=== PATIENT | male | born 1950 | race Caucasian/White ===

== ENCOUNTER 2018-11-28 07:27 | Inpatient (IN) ==
[2018-11-22 16:17] LABS: Appearance,Urine CLEAR; Bilirubin,Urine NEG (NEG); Color,Urine YELLOW; Glucose,Urine (UA) NEGATIVE (NEG); Leukocyte Esterase,Urine NEG /uL (NEG); Protein,Urine NEG (NEG); Specific Gravity,Urine 1.012 (1.000-1.035); Urine Blood NEG mg/dL (<0.03); Urobilinogen,Urine NEG (NEG)
[2018-11-22 17:38] LABS: Basophils # (Auto) 0 K/mcL (0.0-0.3); Basophils % (Auto) 0.6 % (0.0-2.0); Eosinophils # (Auto) 0.1 K/mcL (0.0-0.7); Eosinophils % (Auto) 1.3 % (0.0-7.0); Granulocytes % (Auto) 54.3 % (38.0-78.0); Lymphocytes # (Auto) 1.6 K/mcL (1.5-4.8); Lymphocytes % (Auto) 30.3 % (15.5-49.0); Mean Corpuscular HGB Conc 32.7 g/dL (31.0-36.0); Monocytes # (Auto) 0.7 K/mcL (0.1-0.9); Monocytes % (Auto) 13.5 % (1.0-12.0); Platelet Count 238 K/mcL (140-440); RBC 5.37 M/mcL (4.50-5.90); Red Cell Distribution Width 13.4 % (11.5-14.5)
[2018-11-22 17:47] LABS: Blood Urea Nitrogen 16 mg/dl (8-23)
[~2018-11-28 07:27] MED LIST: ACETAMINOPHEN 500 MG TABLET PO SCH; CELECOXIB 200 MG CAPSULE PO SCH; PREGABALIN 75 MG CAPSULE PO SCH; ceFAZolin 1 GM VIAL IV SCH; oxyCODONE 10 MG TAB.ER.12H PO SCH
[2018-11-28] MEDS ORDERED: ONDANSETRON 4 MG/2 ML VIAL IV ONE (10:20)
[2018-11-28] MEDS ORDERED: LIDOCAINE HCL/PF 100 MG/5 ML SYRINGE IV ONE (10:20)
[2018-11-28] MEDS ORDERED: KETAMINE 100 MG/ML ML IV ONE (10:20)
[2018-11-28] MEDS ORDERED: PROPOFOL 200 MG/20 ML VIAL IV ONE (10:20)
[2018-11-28] MEDS ORDERED: SUCCINYLCHOLINE 20 MG/ML ML IV ONE (10:20)
[2018-11-28] MEDS ORDERED: MIDAZOLAM 5 MG/5 ML VIAL IV ONE (10:20)
[2018-11-28] MEDS ORDERED: TRANEXAMIC ACID 1,000 MG/10 ML VIAL IV ONE ×2 (10:20→11:48)
[2018-11-28] MEDS ORDERED: PHENYLEPHRINE 10 MG/ML VIAL IV ONE (10:20)
[2018-11-28] MEDS ORDERED: fentaNYL 100 MCG/2 ML VIAL IV ONE (10:20)
[2018-11-28] MEDS ORDERED: ROPIVACAINE HCL/PF 30 ML VIAL IJ ONE (10:20)
[2018-11-28] MEDS ORDERED: DEXAMETHASONE 10 MG/ML VIAL IV ONE (10:20)
[2018-11-28] MEDS ORDERED: GLYCOPYRROLATE 0.2 MG/ML VIAL IV ONE (10:20)
[2018-11-28] MEDS ORDERED: METHOCARBAMOL 1,000 MG/10 ML VIAL IV PRN (10:52)
[2018-11-28] MEDS ORDERED: IPRATROPIUM/ALBUTEROL 3 ML AMPUL.NEB NEB PRN (10:52)
[2018-11-28] MEDS ORDERED: FLUMAZENIL 0.1 MG/ML ML IV PRN (10:52)
[2018-11-28] MEDS ORDERED: ONDANSETRON 4 MG/2 ML VIAL IV PRN ×2 (10:52→11:48)
[2018-11-28] MEDS ORDERED: NALOXONE HCL 0.4 MG/ML VIAL IV PRN (10:52)
[2018-11-28] MEDS ORDERED: BENZOCAINE/MENTHOL 1 LOZENGE PO PRN ×2 (10:52→11:48)
[2018-11-28] MEDS ORDERED: MEPERIDINE 25 MG/ML SYRINGE IV PRN (10:52)
[2018-11-28] MEDS ORDERED: fentaNYL 100 MCG/2 ML VIAL IV PRN (10:52)
[2018-11-28] MEDS ORDERED: GENTAMICIN SULFATE 800 MG/20 ML VIAL IR ONE (10:57)
--- NOTE | 2018-11-28 11:47 | Brief Operative Note ---
Date of procedure: 11/28/18 Pre-op diagnosis: left shoulder rca and bicep tear Post-op diagnosis: same Procedure: left shoulder reverse tsa and bicep tenodesis Grafts/Implants: Yes Anesthesia: GETA Complications: none Complications Description: 11/28/18 11:46none 11/28/18 11:46 Surgeon: Dieter Aparicio Chipper Feeder: Erick Blank Estimated blood loss (cc): 50 Specimens Removed/Pathology: none sent Condition: stable Disposition: PACU
[2018-11-28] MEDS ORDERED: ACETAMINOPHEN 325 MG TABLET PO PRN (11:48)
[2018-11-28] MEDS ORDERED: KETOROLAC 30 MG/ML VIAL IV PRN (11:48)
[2018-11-28] MEDS ORDERED: TEMAZEPAM 15 MG CAPSULE PO PRN (11:48)
[2018-11-28] MEDS ORDERED: MAGNESIUM HYDROXIDE 30 ML ORAL.SUSP PO PRN (11:48)
[2018-11-28] MEDS ORDERED: BISACODYL 10 MG SUPP.RECT PR PRN (11:48)
[2018-11-28] MEDS ORDERED: POLYETHYLENE GLYCOL 3350 17 GM PACKET PO PRN (11:48)
[2018-11-28] MEDS ORDERED: HYDROmorphone 2 MG/ML VIAL IV PRN (11:48)
[2018-11-28] MEDS ORDERED: FLEETS ADULT ENEMA PR PRN (11:48)
[2018-11-28] MEDS ORDERED: CURAMIN PO PRN (11:50)
--- NOTE | 2018-11-28 12:40 | Operative Note ---
DATE OF OPERATION: 11/28/2018 PREOPERATIVE DIAGNOSES: Left shoulder rotator cuff arthropathy, degenerative arthritis, and biceps tendinopathy. POSTOPERATIVE DIAGNOSES: Left shoulder rotator cuff arthropathy, degenerative arthritis, and biceps tendinopathy. PROCEDURE: Left reverse total shoulder and biceps tenodesis. SURGEON: Dieter Aparicio M.D. ASSISTANT ACCOUNT MANAGER: Erick Blank PA-C. ANESTHESIA: General LMA anesthesia. COMPLICATIONS: None. DESCRIPTION OF PROCEDURE: The patient was brought to the operating room and put to sleep with general LMA anesthesia. Once asleep, the patient had the left shoulder sterilely prepped and draped in the usual sterile fashion. It was confirmed as the operative site and Ioban placed over the skin. A deltopectoral approach performed, retracting the cephalic vein laterally. Once done, we then exposed the anterior capsule, released the remnants of the subscap and biceps tendon which was then harvested and reattached to the pec major muscle with a [id number] suture. Once done, we then retracted the subscap portion of the rotator cuff medially and dislocated the humeral head. There was proximal humeral migration and significant rotator cuff tear superiorly. At this point, we then removed the bony spurs with an osteotome and then made our cut at the anatomical neck region using the Travel Notes guide at 20 degrees of retroversion. We then subluxed the head posteriorly and identified the glenoid. A 360-degree capsular release and labral removal was performed. We then placed a pin centrally and reamed up to the size 40. A central Metaglene after reaming to depth and achieving punctate bleeding of the sclerotic bone. We then placed the Metaglene with a 6.5 central screw 32 mm in length, a 32 mm 4.5, and two 28 mm 4.5 screws, all locking. We placed a 40 mm concentric humeral head over the Metaglene and 2 mm of offset. Once done, we then broached up on the humerus. The humerus was broached up to size with a 12 stem. A standard poly seemed to fit very nicely, re-achieving his full motion which he had lost. We irrigated thoroughly and cemented into place the distal portion of the stem and porous ingrowth proximally. At this point, we then placed the final implant with a standard thickness poly which was reduced, achieving full motion. We irrigated thoroughly and closed the soft tissues with 2-0 Vicryl. Skin was closed with Stratafix and 2-0 Vicryl and adhesive closure. The patient tolerated this well without complication. A regular Donjoy sling was fitted and given to the patient. Blood loss was about 50 mL. FABIEN:dalton Job ID: [id number] Doc ID: [id number] Dieter Aparicio MD
--- NOTE | 2018-11-28 12:47 | XRay Report ---
HISTORY: Postop total shoulder replacement FINDINGS: There is a well-positioned reverse shoulder prosthesis. No fracture is present and there are no abnormal soft tissue calcifications. There is minor blunting at the left costophrenic sulcus. Minor arthritis is seen at the acromioclavicular joint. IMPRESSION: Well-positioned left shoulder prosthesis Interpreted and Authenticated by: Damian Jang 11/28/18
[2018-11-28] MEDS: 0.45 % SODIUM CHLORIDE 1,000 ML IV SCH ×2 (17:26→22:00)
[2018-11-28] MEDS: 0.9 % SODIUM CHLORIDE 10 ML SYRINGE IV SCH ×2 (17:26→21:56)
[2018-11-28] MEDS: ceFAZolin 1 GM VIAL IV SCH (17:58)
[2018-11-28] MEDS ORDERED: [UNRECOGNIZED DRUG - OTHER] PO SCH (21:00)
[2018-11-28] MEDS ORDERED: PEPR EXT PO SCH (21:00)
[2018-11-28] MEDS ORDERED: TURMERIC EXT PO SCH (21:00)
[2018-11-28] MEDS ORDERED: SENNOSIDES 1 TABLET PO SCH (21:00)
[2018-11-28] MEDS ORDERED: TURMERIC PO SCH (21:00)
[2018-11-28] MEDS ORDERED: ATORVASTATIN 20 MG TABLET PO SCH (21:00)
[2018-11-28] MEDS: HYDROcodone/APAP 10/325MG TABLET PO PRN (21:56)
[2018-11-28] MEDS: DOCUSATE SODIUM 100 MG CAPSULE PO SCH (21:56)
[2018-11-29] MEDS: ceFAZolin 1 GM VIAL IV SCH (03:31)
[2018-11-29] MEDS: 0.9 % SODIUM CHLORIDE 10 ML SYRINGE IV SCH ×2 (03:31→04:30)
[2018-11-29] MEDS: HYDROcodone/APAP 10/325MG TABLET PO PRN ×2 (05:22→12:54)
--- NOTE | 2018-11-29 07:54 | Orthopedic Progress Note ---
Subjective Patient information: Note initiated : 11/29/18 at 7:54 am Service Date, if different from initiated Date: [] Patient: Pavel Michel 68 y/o M admitted on 11/28/18 for Left Reverse Total Shoulder Arthroplasty. Chief Complaint: [Pt is stable this morning on post operative day 1 without any significant concerns or complaints. Patients vital signs have remained stable. Patients dressing is dry and is grossly intact from a neurov ascular and motor standpoint. Patients 10 point ROS is otherwise negative. ] Objective Vital signs: Vital Signs Temp Pulse Resp BP BP Pulse Ox 11/29/18 07:44 98.2 F 64 18 102/68 93 11/29/18 03:40 98.7 F 68 20 93/57 94 11/28/18 23:05 98.9 F 93 H 26 H 104/67 94 11/28/18 19:23 97.8 F 85 26 H 116/75 94 11/28/18 19:20 79 93 11/28/18 15:13 97.8 F 79 16 115/78 93 11/28/18 14:38 92 11/28/18 14:33 74 108/70 92 11/28/18 13:48 82 125/80 92 11/28/18 13:33 78 120/76 94 11/28/18 13:18 82 124/78 92 11/28/18 13:03 96.4 F L 82 16 128/82 94 11/28/18 12:54 97.7 F 85 18 132/76 98 11/28/18 12:46 97.8 F 86 18 135/84 98 11/28/18 12:32 97.6 F 87 18 139/93 92 11/28/18 12:18 97.7 F 95 H 20 137/89 98 11/28/18 12:13 89 12 127/73 96 11/28/18 12:09 93 H 12 85/60 96 11/28/18 12:04 97.3 F 91 H 11 L 94/51 95 Intake and Output 11/28/18 11/29/18 11/29/18 21:59 05:59 13:59 Intake Total 2550 675 Output Total 875 1175 Balance 1675 -500 Intake: Oral 2550 675 Output: Void Amount 875 1175 Other: Meal Dinner Percent of Meal Consumed 75% Urine Appearance Clear Clear Urine Color Straw Straw Urine Odor Strong Normal Weight 207 lb Intake & Output: Intake & Output 11/28/18 11/29/18 11/29/18 21:59 05:59 13:59 Intake Total 2550 675 Output Total 875 1175 Balance 1675 -500 Weight 207 lb Intake: Oral 2550 675 Output: Void Amount 875 1175 Other: Meal Dinner Percent of Meal Consumed 75% Urine Appearance Clear Clear Urine Color Straw Straw Urine Odor Strong Normal Incision: Yes healing Incision clean and dry: Yes Dressing: Yes clean Weight bearing status: full Neurological exam IM: Yes motor sensory intact, Yes neurovascular intact - Labs CBC & BMP: 11/22/18 14:49 11/22/18 14:49 Labs: Orthopedic Labs 11/22/18 14:49 PT 13.5 INR 1.0 APTT 35 11/22/18 14:49 Hgb 15.8 Hct 48.3 Assessment and Plan (1) History of reverse total replacement of left shoulder joint The patient has been educated regarding dressing care, Physical Therapy recommendations, home exercises, restrictions, and follow up appointments. The patient has had all necessary DME prescribed. The patient has remained relatively stable during their hospital course. Leave Dermabond patch intact until followup Status: Acute
--- NOTE | 2018-11-29 07:56 | Discharge Summary ---
Ortho Discharge - TSA - Patient Instructions Diet: Regular Diet Activity: activity as tolerated, weight bearing as tolerated Total Shoulder Protocol: Leave immobilizer in place except for bathing and ROM. Abduction pillow. Continue to wear sling until seen by physician. Codman Pendulum : These exercises use momentum produced by your body to move your shoulder joint. Bend your knees and shift your weight to your front leg, then back, allowing your arm to swing in the same directions. Using the same technique, alternately shift your weight between your right and left legs, allowing your arm to swing from side to side. These exercises are also performed in counterclockwise and clockwise circular motions. Typically these exercises are performed several times per day, for a set number repetitions or minutes, such as 20 times in a row or 5 minutes at a time. Dressing Care: May shower in 2 days - Problem Maintenance (1) History of reverse total replacement of left shoulder joint Status: Acute - Follow Up Plan Follow Up Appointments: Erick Blank PA-C [Physician Ticket Puller] - 12/13/18 10:00 am Disposition: Home, Self-Care Prognosis: Good Rehab Potential: Good I certify that the patient requires SNF services: No Overall status at discharge: patient is progressing back to baseline - Orders For Discharge Prescriptions: Docusate Sodium [Colace] 100 mg PO BID #60 capsule HYDROcodone/APAP 10/325MG [[place] 10-325Mg] 1 - 2 tab PO Q4HP PRN #75 tablet PRN Reason: Pain Level 3-6
[2018-11-29] MEDS ORDERED: NON FORMULARY MEDICATION 1 DOSE MISCELL (Cranberry Conc/C/Bacill Coag [Cranberry Tablet] 1 PO SCH (09:00)
[2018-11-29] MEDS ORDERED: LISINOPRIL 20 MG TABLET PO SCH (09:00)
[2018-11-29] MEDS ORDERED: VITAMIN D3 1,000 UNIT TABLET PO SCH (09:00)
[2018-11-29] MEDS: DOCUSATE SODIUM 100 MG CAPSULE PO SCH (09:20)
== END 2018-11-29 13:10 | disposition home or self-care (01) | DRG 483 ==
LOC: MEDSUR 07:27
PROVIDERS: ADMIT Orthopaedic Surgery; ATTEND Orthopaedic Surgery

== ENCOUNTER 2024-07-28 12:09 | Inpatient (IN) ==
[2024-07-28 13:08] LABS: Basophils # (Auto) 0.02 K/mcL (0.00-0.30); Basophils % (Auto) 0.2 % (0.0-2.0); Eosinophils # (Auto) 0.05 K/mcL (0.00-0.70); Eosinophils % (Auto) 0.6 % (0.0-7.0); Hematocrit 46.9 % (40.1-51.0); Lymphocytes # (Auto) 1.12 K/mcL (1.50-4.80); Lymphocytes % (Auto) 13.5 % (15.5-49.0); Mean Cell Volume 87.5 fL (80.0-100.0); Mean Corpuscular HGB Conc 34.1 g/dL (31.0-36.0); Mean Platelet Volume 9.8 fL (8.8-12.5); Monocytes # (Auto) 1.14 K/mcL (0.10-0.90); Monocytes % (Auto) 13.7 % (1.0-12.0); Neutrophils % (Auto) 71.6 % (38.0-78.0); Platelet Count 305 K/mcL (140-440); RBC 5.36 M/mcL (4.63-6.08); Red Cell Distribution Width 12.8 % (11.5-14.5); WBC 8.3 K/mcL (4.5-11.0)
[2024-07-28] MEDS: LACTATED RINGERS 1,000 ML IV ONE (13:22)
[2024-07-28 13:24] LABS: ALT/SGPT 37 U/L (<40); AST/SGOT 32 U/L (<40); Albumin/Globulin Ratio 1.1 (1.0-2.3); Alkaline Phosphatase 59 U/L (39-117); Bilirubin,Total 1.4 mg/dL (0.1-1.0); Blood Urea Nitrogen 15 mg/dL (8-23); Calcium 9.1 mg/dL (8.6-10.4); Carbon Dioxide 23 mmol/L (22-30); Chloride 90 mmol/L (96-108); Globulin 3.8 gm/dL (2.2-3.7); Glomerular Filtration Rate 94; Glucose 99 mg/dL (70-105); Potassium 3.8 mmol/L (3.3-5.1); Sodium 127 mmol/L (133-145)
[2024-07-28] MEDS: 0.9 % SODIUM CHLORIDE 500 ML IV ONE (14:17)
[2024-07-28] MEDS: ONDANSETRON 4 MG/2 ML VIAL IV ONE (14:50)
[2024-07-28] MEDS: fentaNYL 100 MCG/2 ML VIAL IV ONE (14:50)
[2024-07-28] MEDS: PIPERACILLIN SODIUM/TAZOBACTAM 3.375 GM in DEXTROSE 5% IN WATER 50 ML IV ONE (14:50)
[2024-07-28] MEDS ORDERED: PIPERACILLIN SODIUM/TAZOBACTAM 3.375 GM in DEXTROSE 5% IN WATER 100 ML IV SCH ×2 (16:30→22:00)
[2024-07-28] MEDS: ACETAMINOPHEN 650 MG/65 ML BAG IV PRN (17:23)
[2024-07-28 17:47] LABS: Appearance,Urine Clear (Clear); Bilirubin,Urine Negative (Negative); Color,Urine Yellow; Glucose,Urine (UA) Negative (Negative); Ketones,Urine 40 mg/dL (Negative); Leukocyte Esterase,Urine Negative /uL (Negative); Nitrate,Urine Negative (Negative); PH,Urine 5.5 (5.0-9.0); Protein,Urine Negative (Negative); Urine Blood Small ery/mcL (Negative); Urine RBC 0 /hpf (0-3); Urine Squamous Epithelial Cell 2 /hpf (0-4); Urine WBC 1 /hpf (0-4)
[2024-07-28] MEDS: DEXTROSE 5%-NS W/20MEQ KCL 1,000 ML IV SCH (17:50)
[2024-07-28] MEDS: PIPERACILLIN SODIUM/TAZOBACTAM 3.375 GM in DEXTROSE 5% IN WATER 100 ML IV SCH (19:50)
[2024-07-29 06:39] LABS: Hematocrit 44.3 % (40.1-51.0); Hemoglobin 14.5 g/dL (13.7-17.5); Mean Cell Volume 91.7 fL (80.0-100.0); Mean Corpuscular HGB Conc 32.7 g/dL (31.0-36.0); Mean Platelet Volume 10.2 fL (8.8-12.5); Platelet Count 270 K/mcL (140-440); RBC 4.83 M/mcL (4.63-6.08); Red Cell Distribution Width 13.2 % (11.5-14.5); WBC 8.2 K/mcL (4.5-11.0)
[2024-07-29 07:22] LABS: ALT/SGPT 31 U/L (<40); AST/SGOT 33 U/L (<40); Albumin 3.3 gm/dL (3.2-5.2); Alkaline Phosphatase 51 U/L (39-117); Bilirubin,Total 0.8 mg/dL (0.1-1.0); Blood Urea Nitrogen 9 mg/dL (8-23); Calcium 8.5 mg/dL (8.6-10.4); Carbon Dioxide 23 mmol/L (22-30); Chloride 98 mmol/L (96-108); Globulin 3.2 gm/dL (2.2-3.7); Glomerular Filtration Rate 94; Glucose 120 mg/dL (70-105); Potassium 4.2 mmol/L (3.3-5.1); Sodium 132 mmol/L (133-145)
[2024-07-29] MEDS: oxyCODONE IR 5 MG TABLET PO PRN (07:43)
[2024-07-30 06:48] LABS: Hematocrit 44.2 % (40.1-51.0); Hemoglobin 14.5 g/dL (13.7-17.5); Mean Cell Volume 91.7 fL (80.0-100.0); Mean Corpuscular HGB Conc 32.8 g/dL (31.0-36.0); Mean Platelet Volume 9.7 fL (8.8-12.5); Platelet Count 291 K/mcL (140-440); RBC 4.82 M/mcL (4.63-6.08); Red Cell Distribution Width 13.1 % (11.5-14.5); WBC 7.1 K/mcL (4.5-11.0)
[2024-07-30 07:49] LABS: ALT/SGPT 43 U/L (<40); AST/SGOT 37 U/L (<40); Albumin 3.5 gm/dL (3.2-5.2); Albumin/Globulin Ratio 1.1 (1.0-2.3); Alkaline Phosphatase 57 U/L (39-117); Bilirubin,Total 0.7 mg/dL (0.1-1.0); Blood Urea Nitrogen 4 mg/dL (8-23); Calcium 8.7 mg/dL (8.6-10.4); Carbon Dioxide 24 mmol/L (22-30); Chloride 100 mmol/L (96-108); Globulin 3.3 gm/dL (2.2-3.7); Glomerular Filtration Rate 94; Glucose 119 mg/dL (70-105); Potassium 4.2 mmol/L (3.3-5.1); Sodium 133 mmol/L (133-145)
[2024-07-31 06:42] LABS: ALT/SGPT 34 U/L (<40); AST/SGOT 26 U/L (<40); Albumin 3.4 gm/dL (3.2-5.2); Alkaline Phosphatase 59 U/L (39-117); Bilirubin,Total 0.8 mg/dL (0.1-1.0); Blood Urea Nitrogen 3 mg/dL (8-23); Calcium 8.8 mg/dL (8.6-10.4); Carbon Dioxide 23 mmol/L (22-30); Chloride 102 mmol/L (96-108); Globulin 3.3 gm/dL (2.2-3.7); Glomerular Filtration Rate 100; Glucose 122 mg/dL (70-105); Potassium 4.2 mmol/L (3.3-5.1); Sodium 135 mmol/L (133-145)
[2024-07-31 06:49] LABS: Hematocrit 43.1 % (40.1-51.0); Hemoglobin 14.1 g/dL (13.7-17.5); Mean Cell Volume 92.5 fL (80.0-100.0); Mean Corpuscular HGB Conc 32.7 g/dL (31.0-36.0); Mean Platelet Volume 9.4 fL (8.8-12.5); Platelet Count 324 K/mcL (140-440); RBC 4.66 M/mcL (4.63-6.08); WBC 8.4 K/mcL (4.5-11.0)
[2024-07-31] MEDS ORDERED: GLYCOPYRROLATE 0.2 MG/ML VIAL IV ONE (12:46)
[2024-07-31] MEDS ORDERED: ONDANSETRON 4 MG/2 ML VIAL ONE (12:46)
[2024-07-31] MEDS ORDERED: fentaNYL 100 MCG/2 ML VIAL ONE (12:46)
[2024-07-31] MEDS ORDERED: PROPOFOL 200 MG/20 ML VIAL IV ONE (12:46)
[2024-07-31] MEDS ORDERED: ROCURONIUM 10 MG/ML ML IV ONE (12:46)
[2024-07-31] MEDS ORDERED: LIDOCAINE 2% PF 5 ML VIAL ONE (12:46)
[2024-07-31] MEDS ORDERED: DEXAMETHASONE 10 MG/ML VIAL ONE (12:46)
[2024-07-31] MEDS ORDERED: KETAMINE 50 MG/ML Syringe IV ONE (12:56)
[2024-07-31] MEDS ORDERED: MAGNESIUM SULFATE 2 GM/50 ML BAG IV ONE (12:58)
[2024-07-31] MEDS ORDERED: HYDROmorphone 0.5 MG/0.5 ML SYRINGE ONE ×3 (13:17→18:31)
[2024-07-31] MEDS ORDERED: FAMOTIDINE/PF 20 MG/2 ML VIAL IV ONE (13:18)
[2024-07-31] MEDS: BUPIVACAINE W/EPI 0.25% 50 ML VIAL IJ ONE ×2 (14:45→19:50)
[2024-07-31] MEDS ORDERED: METOPROLOL TARTRATE 5 MG/5 ML VIAL IV PRN (15:11)
[2024-07-31] MEDS ORDERED: NALOXONE HCL 0.4 MG/ML VIAL IV PRN ×2 (15:11→18:06)
[2024-07-31] MEDS ORDERED: LACTATED RINGERS 250 ML IV PRN (15:11)
[2024-07-31] MEDS ORDERED: METHOCARBAMOL 1,000 MG/10 ML VIAL IV PRN (15:11)
[2024-07-31] MEDS ORDERED: MEPERIDINE 25 MG/ML VIAL IV PRN (15:11)
[2024-07-31] MEDS ORDERED: IPRATROPIUM/ALBUTEROL 3 ML AMPUL.NEB NEB PRN ×2 (15:11→18:06)
[2024-07-31] MEDS ORDERED: fentaNYL 100 MCG/2 ML VIAL IV PRN ×2 (15:11→18:06)
[2024-07-31] MEDS ORDERED: HYDROmorphone 0.5 MG/0.5 ML SYRINGE IV PRN (15:11)
[2024-07-31] MEDS ORDERED: ONDANSETRON 4 MG/2 ML VIAL IV PRN ×2 (15:11→18:06)
[2024-07-31] MEDS ORDERED: SUGAMMADEX SODIUM 200 MG/2 ML VIAL IV ONE (18:14)
[2024-07-31] MEDS: BACITRACIN TOPICAL OINT 15 GM TUBE TOPICAL ONE (18:36)
[2024-07-31] MEDS: ACETAMINOPHEN 1,000 MG/100 ML BAG IV ONE (18:50)
[2024-07-31] MEDS: LACTATED RINGERS 1,000 ML IV SCH ×2 (19:50→20:15)
[2024-08-01] MEDS: HYDROmorphone 0.5 MG/0.5 ML SYRINGE IV PRN ×2 (02:24→16:35)
[2024-08-01 06:46] LABS: Hematocrit 40.2 % (40.1-51.0); Hemoglobin 13.1 g/dL (13.7-17.5); Mean Cell Volume 92.2 fL (80.0-100.0); Mean Corpuscular HGB Conc 32.6 g/dL (31.0-36.0); Mean Platelet Volume 9.4 fL (8.8-12.5); Platelet Count 322 K/mcL (140-440); RBC 4.36 M/mcL (4.63-6.08); Red Cell Distribution Width 13.1 % (11.5-14.5); WBC 11.7 K/mcL (4.5-11.0)
[2024-08-01 06:57] LABS: Blood Urea Nitrogen 6 mg/dL (8-23); Calcium 8.6 mg/dL (8.6-10.4); Carbon Dioxide 22 mmol/L (22-30); Chloride 100 mmol/L (96-108); Glomerular Filtration Rate 94; Glucose 152 mg/dL (70-105); Potassium 4.7 mmol/L (3.3-5.1); Sodium 134 mmol/L (133-145)
[2024-08-01] MEDS: oxyCODONE IR 5 MG TABLET PO PRN (20:16)
[2024-08-02 06:10] LABS: Hematocrit 42.1 % (40.1-51.0); Hemoglobin 13.7 g/dL (13.7-17.5); Mean Cell Volume 90.5 fL (80.0-100.0); Mean Corpuscular HGB Conc 32.5 g/dL (31.0-36.0); Mean Platelet Volume 9.4 fL (8.8-12.5); Platelet Count 384 K/mcL (140-440); RBC 4.65 M/mcL (4.63-6.08); Red Cell Distribution Width 13.2 % (11.5-14.5); WBC 12.8 K/mcL (4.5-11.0)
[2024-08-02 06:26] LABS: ALT/SGPT 76 U/L (<40); AST/SGOT 48 U/L (<40); Albumin 3.4 gm/dL (3.2-5.2); Albumin/Globulin Ratio 1.1 (1.0-2.3); Alkaline Phosphatase 51 U/L (39-117); Bilirubin,Total 0.9 mg/dL (0.1-1.0); Blood Urea Nitrogen 6 mg/dL (8-23); Calcium 8.8 mg/dL (8.6-10.4); Carbon Dioxide 22 mmol/L (22-30); Chloride 102 mmol/L (96-108); Globulin 3.2 gm/dL (2.2-3.7); Glomerular Filtration Rate 94; Glucose 128 mg/dL (70-105); Potassium 4.7 mmol/L (3.3-5.1); Sodium 134 mmol/L (133-145)
[2024-08-02] MEDS: ATORVASTATIN 20 MG TABLET PO SCH (19:56)
[2024-08-02] MEDS: ATORVASTATIN 20 MG TABLET ONE (20:00)
[2024-08-02] MEDS: ONDANSETRON 4 MG/2 ML VIAL IV PRN (22:32)
[2024-08-03 06:50] LABS: Hematocrit 43.1 % (40.1-51.0); Hemoglobin 14.1 g/dL (13.7-17.5); Mean Corpuscular HGB Conc 32.7 g/dL (31.0-36.0); Mean Platelet Volume 9.5 fL (8.8-12.5); Platelet Count 414 K/mcL (140-440); RBC 4.79 M/mcL (4.63-6.08); Red Cell Distribution Width 13.2 % (11.5-14.5); WBC 14.1 K/mcL (4.5-11.0)
[2024-08-03 07:01] LABS: Blood Urea Nitrogen 6 mg/dL (8-23); Calcium 8.8 mg/dL (8.6-10.4); Carbon Dioxide 23 mmol/L (22-30); Chloride 102 mmol/L (96-108); Glomerular Filtration Rate 100; Glucose 138 mg/dL (70-105); Potassium 4.3 mmol/L (3.3-5.1); Sodium 135 mmol/L (133-145)
[2024-08-03] MEDS: LISINOPRIL 20 MG TABLET PO SCH (08:24)
[2024-08-03] MEDS ORDERED: IOPAMIDOL 100 ML BOTTLE IV ONE (18:17)
[2024-08-04 06:48] LABS: Basophils # (Auto) 0.04 K/mcL (0.00-0.30); Basophils % (Auto) 0.4 % (0.0-2.0); Eosinophils # (Auto) 0.13 K/mcL (0.00-0.70); Eosinophils % (Auto) 1.2 % (0.0-7.0); Hematocrit 38.7 % (40.1-51.0); Hemoglobin 12.6 g/dL (13.7-17.5); Lymphocytes # (Auto) 1.33 K/mcL (1.50-4.80); Lymphocytes % (Auto) 12.1 % (15.5-49.0); Mean Cell Volume 90.8 fL (80.0-100.0); Mean Corpuscular HGB Conc 32.6 g/dL (31.0-36.0); Mean Platelet Volume 9.2 fL (8.8-12.5); Monocytes # (Auto) 1.15 K/mcL (0.10-0.90); Monocytes % (Auto) 10.5 % (1.0-12.0); Platelet Count 411 K/mcL (140-440); RBC 4.26 M/mcL (4.63-6.08); Red Cell Distribution Width 13.4 % (11.5-14.5)
[2024-08-04 07:05] LABS: ALT/SGPT 34 U/L (<40); AST/SGOT 19 U/L (<40); Albumin 3.2 gm/dL (3.2-5.2); Albumin/Globulin Ratio 1.1 (1.0-2.3); Alkaline Phosphatase 43 U/L (39-117); Amylase 18 U/L (28-100); Bilirubin,Total 0.6 mg/dL (0.1-1.0); Blood Urea Nitrogen 6 mg/dL (8-23); Calcium 8.8 mg/dL (8.6-10.4); Carbon Dioxide 25 mmol/L (22-30); Chloride 102 mmol/L (96-108); Globulin 2.9 gm/dL (2.2-3.7); Glomerular Filtration Rate 100; Glucose 123 mg/dL (70-105); Potassium 4.1 mmol/L (3.3-5.1); Sodium 137 mmol/L (133-145)
[2024-08-05 06:49] LABS: Hematocrit 38.1 % (40.1-51.0); Hemoglobin 12.3 g/dL (13.7-17.5); Mean Cell Volume 92.3 fL (80.0-100.0); Mean Corpuscular HGB Conc 32.3 g/dL (31.0-36.0); Mean Platelet Volume 9.1 fL (8.8-12.5); Platelet Count 426 K/mcL (140-440); RBC 4.13 M/mcL (4.63-6.08); Red Cell Distribution Width 13.4 % (11.5-14.5); WBC 9.4 K/mcL (4.5-11.0)
[2024-08-05 07:20] LABS: ALT/SGPT 31 U/L (<40); AST/SGOT 22 U/L (<40); Albumin 3.1 gm/dL (3.2-5.2); Albumin/Globulin Ratio 1.1 (1.0-2.3); Alkaline Phosphatase 47 U/L (39-117); Bilirubin,Total 0.5 mg/dL (0.1-1.0); Blood Urea Nitrogen 5 mg/dL (8-23); Calcium 8.9 mg/dL (8.6-10.4); Carbon Dioxide 26 mmol/L (22-30); Chloride 102 mmol/L (96-108); Globulin 2.7 gm/dL (2.2-3.7); Glomerular Filtration Rate 94; Glucose 114 mg/dL (70-105); Potassium 4.3 mmol/L (3.3-5.1); Sodium 136 mmol/L (133-145)
[2024-08-05] MEDS: METOCLOPRAMIDE 10 MG/2 ML VIAL IV SCH (12:13)
[2024-08-06] MEDS: BISACODYL 10 MG SUPP.RECT PR SCH (20:27)
[2024-08-07 06:44] LABS: Basophils # (Auto) 0.03 K/mcL (0.00-0.30); Basophils % (Auto) 0.3 % (0.0-2.0); Eosinophils # (Auto) 0.09 K/mcL (0.00-0.70); Hemoglobin 12.4 g/dL (13.7-17.5); Lymphocytes # (Auto) 1.64 K/mcL (1.50-4.80); Lymphocytes % (Auto) 18.2 % (15.5-49.0); Mean Cell Volume 89.8 fL (80.0-100.0); Mean Corpuscular HGB Conc 32.6 g/dL (31.0-36.0); Mean Platelet Volume 9.2 fL (8.8-12.5); Monocytes # (Auto) 1.07 K/mcL (0.10-0.90); Monocytes % (Auto) 11.9 % (1.0-12.0); Neutrophils % (Auto) 67.5 % (38.0-78.0); Platelet Count 486 K/mcL (140-440); RBC 4.23 M/mcL (4.63-6.08); Red Cell Distribution Width 13.1 % (11.5-14.5)
[2024-08-07] MEDS: LACTULOSE 20 GM/30 ML ORAL.SOL PO ONE (14:27)
== END 2024-08-08 13:33 | disposition home or self-care (01) | DRG 418 ==
LOC: ED 12:09 → MEDSUR 19:08
PROVIDERS: ADMIT Surgery Surgical Critical Care; ATTEND Surgery Surgical Critical Care